=== PATIENT | male | born 1980 | race Native Hawaiian/Other Pacific Islander ===

== ENCOUNTER 2022-12-06 16:56 | Emergency (ER) | payer OTHER ==
[~2022-12-06] VITALS: Ht 180.3 cm; Wt 154.2 kg
[2022-12-06 17:10] VITALS: BP 124/83; TEMP 97.2
== END 2022-12-06 18:10 | disposition home or self-care (01) ==
LOC: ED 16:56
DX: M10.9 Gout, unspecified (principal)
CPT/HCPCS: 96372; 99282; J1885